=== PATIENT | female | born 1985 | race Caucasian/White ===

== ENCOUNTER 2021-10-04 07:26 | Inpatient (IN) | payer BC, SELFPAY ==
[2021-10-04] VITALS (195 sets, daily range): BP systolic 108–141; BP diastolic 65–103; PULSE 69–102; RESP 18; TEMP 36.6–37.3; O2SAT 95–100; BMI 24.6
[2021-10-04 08:19] LABS: Basophils Absolute Auto 0.1 K/mm3 (0.0-0.1); Basophils Percent Auto 0.4 % (0.2-1.2); Eosinophils Absolute Auto 0.1 K/mm3 (0-0.3); Eosinophils Percent Auto 0.7 % (0-4.4); Hematocrit 36.8 % (37.0-47.0); Hemoglobin 12.4 g/dL (12.0-15.0); Immature Granulocyte Absolute 0.44 K/mm3 (0.00-0.031); Immature Granulocyte Percent A 2.2 % (0-0.5); Lymphocytes Absolute Auto 2.03 K/mm3 (0.9-3.2); Lymphocytes Percent Auto 10.3 % (18.3-44.2); Mean Corpuscular HGB Conc 33.7 g/dl (32-36); Mean Corpuscular Hemoglobin 29.3 pg (26-34); Mean Platelet Volume 11.8 fl (7.4-10.4); Monocytes Absolute Auto 1.4 K/mm3 (0.1-0.6); Monocytes Percent Auto 7.1 % (2.6-8.5); Neutrophils Absolute Auto 15.7 K/mm3 (1.3-6.7); Neutrophils Percent Auto 79.3 % (45.5-73.1); Platelet Count Result 283 k/mm3 (150-375); Red Blood Count 4.23 M/mm3 (4.2-5.4); Red Cell Distribution Width 13.2 % (11.5-14.5); White Blood Count 19.8 K/mm3 (4.5-10.0)
[2021-10-04 08:25] LABS: Glucose 84 mg/dL (65-110)
[2021-10-04] MEDS: OXYTOCIN 30 UNITS/NS 500 ML 30 UNITS/500 ML BAG 6 UNITS IV CONT (08:30)
[2021-10-04] MEDS: LACTATED RINGERS 1,000 ML 125 ML IV CONT ×3 (08:30→19:42)
--- NOTE | 2021-10-04 08:44 | LDADM ---
This patient, Robi Laughlin, was admitted to Labor/Delivery/Recovery 107 on 10/04/21 at 07:26. Plans for labor, pain management and were discussed with patient. Patient/family oriented to hospital policies and general routines including ID bracelet, bed and alarms, visiting hours, pain management, procedures, bathroom and other care routines, personal items, smoking policy, room service/diet and guest tray routines, security routines, and visiting hours. Patient/Family are encouraged to report perceived risks to care and to ask questions if they do not understand what they are told or what they should do. See OBIX for further documentation.
[2021-10-04 09:02] LABS: Hemoglobin A1C 5.1 % (<5.7)
[2021-10-04] MEDS: fentaNYL CITRATE INJ (*CRX) 100 MCG/2 ML VIAL 50 MCG IV PUSH (12:07)
[2021-10-04] MEDS: fentaNYL CITRATE INJ (*CRX) 100 MCG/2 ML VIAL IV PUSH ×3 (13:07→15:08)
[2021-10-04 13:14] LABS: Rapid Plasma Reagin Non-Reactive (NonReactive)
--- NOTE | 2021-10-04 14:15 | WPDANESEPP ---
Anes - Eval Pre Procedure Procedure: Labor epidural Date/Time: 10/04/21 14:15 Surgeon: BARBER Preop Diagnosis: ABD PAIN WITH CONTRACTIONS Pre Op Diagnosis: Induction of Labor Patient Data Age: 35 Gender: F Height: 1.78 m Weight: 78 kg Last Vital Signs Temp 98.9 F 10/04/21 12:00 Pulse 83 10/04/21 13:01 Resp 18 10/04/21 08:26 BP 133/81 10/04/21 13:01 Pulse Ox 98 10/04/21 14:10 Allergies Allergy/AdvReac Type Severity Reaction Status Date / Time No Known Allergies Allergy Verified 10/04/21 08:14 Home Medications Medication Instructions Recorded Confirmed Type calcium carbonate [Tums] 200 mg PO .PRN PRN 10/04/21 10/04/21 History docusate sodium [Colace] 100 mg PO DAILY PRN 10/04/21 10/04/21 History famotidine [Pepcid] 20 mg PO DAILY 10/04/21 10/04/21 History ferrous sulfate 140 mg PO DAILY 10/04/21 10/04/21 History prenat.vits,lacey,[place]ul-ring-rfnju 1 tablet PO DAILY 10/04/21 10/04/21 History [ Vitamin] Laboratory Tests 10/04/21 10/04/21 10/04/21 08:05 08:05 08:05 WBC 19.8 K/mm3 H K/mm3 (4.5-10.0) RBC 4.23 M/mm3 M/mm3 (4.2-5.4) Hgb 12.4 g/dL g/dL (12.0-15.0) Hct 36.8 % L % (37.0-47.0) MCV 87.0 fl fl (80-100) MCH 29.3 pg pg (26-34) MCHC 33.7 g/dl g/dl (32-36) RDW 13.2 % % (11.5-14.5) Plt Count 283 k/mm3 k/mm3 (150-375) MPV 11.8 fl H fl (7.4-10.4) Immature Gran % (Auto) 2.2 % H % (0-0.5) Neut % (Auto) 79.3 % H % (45.5-73.1) Lymph % (Auto) 10.3 % L % (18.3-44.2) [place] % (Auto) 7.1 % % (2.6-8.5) Eos % (Auto) 0.7 % % (0-4.4) Baso % (Auto) 0.4 % % (0.2-1.2) Lymph # (Auto) 2.03 K/mm3 K/mm3 (0.9-3.2) [place] # (Auto) 1.4 K/mm3 H K/mm3 (0.1-0.6) Eos # (Auto) 0.1 K/mm3 K/mm3 (0-0.3) Baso # (Auto) 0.1 K/mm3 K/mm3 (0.0-0.1) Abs Immat Gran (auto) 0.44 K/mm3 H K/mm3 (0.00-0.031) Absolute Neuts (auto) 15.7 K/mm3 H K/mm3 (1.3-6.7) Absolute Nucleated RBC 0.0 K/mm3 K/mm3 (0.0-0.012) Nucleated RBC % 0.0 % % (0.0-0.2) Glucose Hemoglobin A1c RPR Non-reactive (NonReactive) Blood Type B Positive Antibody Screen Negative 10/04/21 10/04/21 08:05 08:05 WBC RBC Hgb Hct MCV MCH MCHC RDW Plt Count MPV Immature Gran % (Auto) Neut % (Auto) Lymph % (Auto) [place] % (Auto) Eos % (Auto) Baso % (Auto) Lymph # (Auto) [place] # (Auto) Eos # (Auto) Baso # (Auto) Abs Immat Gran (auto) Absolute Neuts (auto) Absolute Nucleated RBC Nucleated RBC % Glucose 84 mg/dL mg/dL (65-110) Hemoglobin A1c 5.1 % % (<5.7) RPR Blood Type Antibody Screen : gestational age HCG: positive Patient hx anesthesia problems: none Family hx anesthesia problems: none Results Review: All pre-operative results and documents have been reviewed as part of the pre-operative evaluation. [facility] Past Medical History Medical History (Updated 10/04/21 @ 14:18 by Guillermo Prasad CRNA) Anxiety Migraines Overweight (BMI 25.0-29.9) and not yet delivered Family History Family History Grandparent Lung cancer Mother Hypertension Legal Guardian No problems noted. Grandparent Hypertension Social History Social History Smoking status: Never smoker Substance use: never Spiritual care concerns: No Exam Day of Procedure 10/04/21 14:15
[2021-10-04] MEDS: LORATADINE 10 MG TABLET PO (19:41)
[2021-10-04] MEDS: CALCIUM CARBONATE (TUMS) 500 MG (200 MG ELEMENTAL) PO (19:41)
[2021-10-05] VITALS (135 sets, daily range): BP systolic 90–150; BP diastolic 59–90; PULSE 58–259; RESP 16–20; TEMP 36.6–38.1; O2SAT 96–100
[2021-10-05] MEDS: ONDANSETRON INJ 4 MG/2 ML VIAL IV PUSH (00:06)
[2021-10-05] MEDS: diphenhydrAMINE HCl INJ 50 MG/ML VIAL 25 MG IV PUSH (01:38)
[2021-10-05] MEDS: AMPICILLIN 2 GM/NS 100 ML 2 GM/100 ML BAG IVPB (02:29)
[2021-10-05] MEDS: CALCIUM CARBONATE (TUMS) 500 MG (200 MG ELEMENTAL) PO (02:29)
[2021-10-05] MEDS: LACTATED RINGERS 1,000 ML 125 ML IV CONT (03:48)
[2021-10-05] MEDS: SODIUM CHLORIDE 0.9% IV 300 ML 600 ML I-UTERINE (04:24)
--- NOTE | 2021-10-05 05:18 | WPDOBADMIT ---
Obstetrics - Admit Note Admission Note: 10/04/21 @ 0900 35y/o G1 @ 40 weeks gestation here for induction of labor for term and suspected macrosomia. Pt was offered primary c/s or induction. We have discussed increased risks with macrosomia in detail including risk of injury that ranges from mild to catastrophic. Pt verbalized understanding and would like to proceed with induction of labor. Normal gtt screen at 28 weeks. No indication to repeat up until now. Will check fasting glucose and hgb a1c as this could impact decision on labor vs . VSS Contractons irregular FHR category 1 Cervix /70/-2 AROM small amount of clear odorless fluid Epidural when desired Anticipate record reviewed. No pertinent additions to the history and/or any subsequent changes in the physical findings that are not consistent with the expected course of the were found./ // Additions to the history and/or subsequent changes in the physical findings follow. None.
--- NOTE | 2021-10-05 05:24 | PM.IMHP ---
H&P: HPI History of Present Illness Date/Time: 10/05/21 05:24 35 y/o G1 @ 40 weeks here for induction of labor for term and suspected macrosomia. Chief Complaint: Induction of labor Review of Systems Review of Systems: All systems reviewed & are unremarkable except as noted in HPI and below Constitutional: Constitutional: Reports as per HPI and Reports no additional constitutional complaints Eyes: Eyes: Reports as per HPI ENT: Reports system reviewed and no additional complaints, except as documented Cardiovascular: Cardiovascular: Reports as per HPI Respiratory: Respiratory: Reports as per HPI Gastrointestinal: Gastrointestinal: Reports as per HPI Genitourinary: Genitourinary: Reports no additional female genitourinary complaints Musculoskeletal: Musculoskeletal: Reports no additional musculoskeletal complaints Integumentary/Breasts: Skin/Breast: Reports system reviewed and no additional complaints, except as docu Neurologic: Reports system reviewed and no additional complaints, except as documented Psychiatric: Psychiatric: Reports no additional psychiatric complaints Endocrine: Endocrine: Reports no additional endocrine complaints Hematologic/Lymphatic: Hematologic/Lymphatic: Reports no additional hematologic/lymphatic complaints Allergic/Immunologic: Allergic/Immunologic: Reports no additional allergic/immunologic complaints [facility] Past Medical History Medical History (Updated 10/04/21 @ 14:18 by Guillermo Prasad CRNA) Anxiety Migraines Overweight (BMI 25.0-29.9) and not yet delivered Family History Family History Grandparent Lung cancer Mother Hypertension Legal Guardian No problems noted. Grandparent Hypertension Social History Social History Smoking status: Never smoker Substance use: never Spiritual care concerns: No Meds Home Medications and Allergies Home Medications Medication Instructions Recorded Confirmed Type calcium carbonate [Tums] 200 mg PO .PRN PRN 10/04/21 10/04/21 History docusate sodium [Colace] 100 mg PO DAILY PRN 10/04/21 10/04/21 History famotidine [Pepcid] 20 mg PO DAILY 10/04/21 10/04/21 History ferrous sulfate 140 mg PO DAILY 10/04/21 10/04/21 History prenat.vits,lacey,sft-lsqb-afymf 1 tablet PO DAILY 10/04/21 10/04/21 History [ Vitamin] Allergies Allergy/AdvReac Type Severity Reaction Status Date / Time No Known Allergies Allergy Verified 10/04/21 08:14 Vital Signs Vital Signs - 24 hr 10/04/21 08:23 10/04/21 08:26 10/04/21 08:31 Temperature 99.1 F Pulse Rate 83 83 87 Respiratory Rate 18 Blood Pressure 128/89 128/89 130/88 Pulse Oximetry 10/04/21 08:46 10/04/21 09:01 10/04/21 09:16 Temperature Pulse Rate 82 81 78 Respiratory Rate Blood Pressure 141/92 H 137/88 135/80 Pulse Oximetry 10/04/21 09:31 10/04/21 09:46 10/04/21 10:00 Temperature 98.3 F Pulse Rate 87 78 Respiratory Rate Blood Pressure 114/71 121/90 Pulse Oximetry 10/04/21 10:08 10/04/21 10:16 10/04/21 10:31 Temperature Pulse Rate 73 80 86 Respiratory Rate Blood Pressure 129/78 120/89 131/91 H Pulse Oximetry 10/04/21 10:46 10/04/21 11:01 10/04/21 11:16 Temperature Pulse Rate 80 72 82 Respiratory Rate Blood Pressure 123/86 122/76 125/82 Pulse Oximetry 10/04/21 11:31 10/04/21 11:46 10/04/21 12:00 Temperature 98.9 F Pulse Rate 78 78 Respiratory Rate Blood Pressure 123/89 110/71 Pulse Oximetry 10/04/21 12:15 10/04/21 12:31 10/04/21 12:46 Temperature Pulse Rate 84 82 77 Respiratory Rate Blood Pressure 134/83 123/76 124/77 Pulse Oximetry 10/04/21 13:01 10/04/21 13:10 10/04/21 13:15 Temperature Pulse Rate 83 Respiratory Rate Blood Pressure 133/81 Pulse Oximetry 100 98 10/04/21 13:20 10/04/21 13:25 10/04/21 1
--- NOTE | 2021-10-05 06:42 | WPDHPUPDATE1 ---
History and Physical Update Update Date/Time: 10/05/21 06:42 VSS with a temp of 100.5 Contractions regular and have been adequate most of the night FHR category 2. occasional variable and late decelerations. Overall reassuring. Cervix 4-5 with minimal change overnight Pt tearful and ready to proceed with . Dr Miner notified and called. Discussed risks of including bleeding, infection and damage to bowel or bladder. Pt verbalized understanding and agrees to proceed. for suspected macrosomia and failure to progress. History and Physical has been reviewed, including an updated exam of the patient. There are NO changes in the patient's condition. Risks, benefits, and alternatives have been discussed and questions answered. Patient agrees to proceed with procedure.
--- NOTE | 2021-10-05 06:48 | WPDANESEFPP ---
Anes - Eval Final PreProcedure Day of Procedure 10/05/21 06:48 Patient weight: normal Heart: regular rate and rhythm Lungs: clear to auscultation and normal air movement Airway: Mallampati scale class II Neurological: alert and oriented Last oral intake: >/= 8 hours ASA classification: II Emergent: no Anesthetic plan: proceed Anesthesia type and monitoring: regional epidural and standard monitoring Results Review: All pre-operative results and documents have been reviewed as part of the pre-operative evaluation. Informed Consent: The patient's anesthetic plan and its attendant risks and benefits were discussed with the patient/family/POA. Questions were solicited and answers provided to the satisfaction of the patient/family/POA.
[2021-10-05] MEDS: AMPICILLIN 1 GM/NS 50 ML 1 GM/50 ML BAG IVPB (06:49)
[2021-10-05] MEDS: KETOROLAC 30 MG/ML VIAL (*BKC) IV PUSH ×2 (08:05→15:05)
--- NOTE | 2021-10-05 08:12 | W.PM.PROC2 ---
Procedure Note - Detailed Date of Procedure 10/05/21 Pre-op Diagnosis Induction of Labor, failed to progress Post-op Diagnosis same ( malposition of the head) Procedure Performed Low-transverse section Surgeon Sushant Miner MD Anesthesia spinal Indications arrest of labor, failed to progress Findings Normal gestational maternal anatomy, average size , normal Apgars. malposition of the head in the COLTEN a position Description of Procedure The patient was taken the operating room. She was prepped and draped in dorsal supine position with a leftward tilt. This was done after spinal anesthetic was applied. A low-transverse skin incision was made and carried down till of the fascia with the knife. The fascial incision was made with the knife. The fascial incision was extended laterally with [place] scissors. The fascia was tented upward superiorly and inferiorly the rectus muscles were dissected off bluntly. The rectus muscles were the midline. The preperitoneal fat and peritoneum were dissected open bluntly at the superior aspect of the rectus muscles. The peritoneal incision was extended superior and inferior with good position of bladder. The uterine incision was made with a scalpel down to the level of the amniotic cavity. The amniotic cavity was entered bluntly. The infant was delivered. The cord was clamped and cut and the infant was handed off to waiting pediatric staff. Cord bloods were obtained. The placenta was removed manually. The uterus was exteriorized. The uterus was cleared of all clots, debris and membranes. The uterus was closed in 0 Vicryl running lock fashion. An imbricating over a was placed along the incision line as well. The uterus was returned to the abdomen. The gutters were cleared of all clots and debris. The fascia was closed with 0 Vicryl running fashion. The subcutaneous tissue was irrigated pinpoint bleeders were cauterized. The skin was closed with subcuticular absorbable mukesh. The skin incision line was covered with glue. The patient tolerated the procedure well. She has taken recovery room in stable condition. Sponge lap and needle counts were correct x2. Estimated Blood Loss 500 Pathology yes Complications No immediate complications Condition stable Disposition PACU
[2021-10-05] MEDS: OXYTOCIN 30 UNITS/NS 500 ML 30 UNITS/500 ML BAG 125 UNITS IV CONT (09:53)
[2021-10-05] MEDS: HYDROcodone/acetaminophen (*CRX) 5-325 MG TABLET 1 TAB PO ×3 (12:34→20:15)
--- NOTE | 2021-10-05 14:40 | OBPPTRN ---
1027Patient transferred to post room #291 via stretcher. Support person present. Oriented to unit, room, information board, rooming in, admission packet and security measures. Patient verbalizes understanding.
[2021-10-05] MEDS: SIMETHICONE 80 MG TAB.CHEW PO ×2 (15:17→20:15)
[2021-10-05] MEDS: DEXTROSE 5%/0.45% SOD CHL 1,000 ML 125 ML IV CONT (15:29)
[2021-10-05] MEDS: DOCUSATE SODIUM 100 MG CAPSULE PO (17:27)
[2021-10-05] MEDS: IBUPROFEN 600 MG TABLET PO (20:15)
[2021-10-06 04:40] VITALS: BP 101/74; PULSE 85; RESP 16; TEMP 36.6
[2021-10-06] MEDS: SIMETHICONE 80 MG TAB.CHEW PO ×5 (04:52→20:23)
[2021-10-06] MEDS: HYDROcodone/acetaminophen (*CRX) 5-325 MG TABLET 1 TAB PO ×5 (04:52→22:42)
[2021-10-06] MEDS: IBUPROFEN 600 MG TABLET PO ×3 (04:53→20:22)
[2021-10-06 04:55] LABS: Basophils Absolute Auto 0.1 K/mm3 (0.0-0.1); Basophils Percent Auto 0.4 % (0.2-1.2); Eosinophils Absolute Auto 0.1 K/mm3 (0-0.3); Eosinophils Percent Auto 0.3 % (0-4.4); Hematocrit 27.8 % (37.0-47.0); Hemoglobin 9.4 g/dL (12.0-15.0); Immature Granulocyte Absolute 0.66 K/mm3 (0.00-0.031); Immature Granulocyte Percent A 2.2 % (0-0.5); Lymphocytes Absolute Auto 1.75 K/mm3 (0.9-3.2); Lymphocytes Percent Auto 5.9 % (18.3-44.2); Mean Corpuscular HGB Conc 33.8 g/dl (32-36); Mean Corpuscular Hemoglobin 29.8 pg (26-34); Mean Corpuscular Volume 88.3 fl (80-100); Mean Platelet Volume 11.9 fl (7.4-10.4); Monocytes Absolute Auto 1.7 K/mm3 (0.1-0.6); Monocytes Percent Auto 5.9 % (2.6-8.5); Neutrophils Absolute Auto 25.3 K/mm3 (1.3-6.7); Neutrophils Percent Auto 85.3 % (45.5-73.1); Platelet Count Result 211 k/mm3 (150-375); Red Blood Count 3.15 M/mm3 (4.2-5.4); Red Cell Distribution Width 13.3 % (11.5-14.5); White Blood Count 29.7 K/mm3 (4.5-10.0)
[2021-10-06 07:00] VITALS: BP 97/63; PULSE 75; RESP 16; TEMP 36.3; O2SAT 100
[2021-10-06 07:26] LABS: Platelet Estimate Adequate (Adequate)
--- NOTE | 2021-10-06 08:11 | WPDANLDPN2 ---
Anes-Prog Note L&D Date/Time: 10/06/21 08:11 Comfortable throughout: labor and delivery Neuraxial method: epidural Epidural/Spinal procedure site: clean & non-tender Neuro status: Neuro function grossly intact. Cardiovascular status: normal Respiratory status: normal Airway patency: baseline Mental status: baseline Post-Op hydration status: normal Vital Signs: Last Vital Signs Temp 97.3 F L 10/06/21 07:00 Pulse 75 10/06/21 07:00 Resp 16 10/06/21 07:00 BP 97/63 L 10/06/21 07:00 Pulse Ox 100 10/06/21 07:00 Pain score (VAS): 0 I/O: Intake & Output 10/05/21 10/06/21 10/06/21 23:59 07:59 15:59 Intake Total 1207 1000 Output Total 1950 1000 Balance -743 0 Post-procedural complaints: none Patient feedback: Patient satisfied with anesthetic care.
--- NOTE | 2021-10-06 09:05 | WPDANLDPN2 ---
Anes-Prog Note L&D Date/Time: 10/06/21 09:05 Comfortable throughout: labor and section Neuraxial method: epidural Epidural/Spinal procedure site: clean & non-tender Neuro status: Neuro function grossly intact. Cardiovascular status: normal Respiratory status: normal Airway patency: baseline Mental status: baseline Post-Op hydration status: normal Vital Signs: Last Vital Signs Temp 97.3 F L 10/06/21 07:00 Pulse 75 10/06/21 07:00 Resp 16 10/06/21 07:00 BP 97/63 L 10/06/21 07:00 Pulse Ox 100 10/06/21 07:00 Pain score (VAS): 0 I/O: Intake & Output 10/05/21 10/06/21 10/06/21 23:59 07:59 15:59 Intake Total 1207 1000 Output Total 1950 1000 Balance -743 0 Post-procedural complaints: none Patient feedback: Patient satisfied with anesthetic care.
--- NOTE | 2021-10-06 09:06 | WPDANLDNPN2 ---
Anes-Prog Note L&D-Neuraxial Date/Time: 10/06/21 09:06 Neuraxial medications: epidural PF morphine Opiod-related complaints: none Patient feedback: Patient satisfied with post-operative pain management.
[2021-10-06] MEDS: DOCUSATE SODIUM 100 MG CAPSULE PO ×2 (09:40→16:52)
[2021-10-06] MEDS: POLYSACCHARIDE IRON COMPLEX 150 MG CAPSULE PO ×2 (09:40→16:52)
--- NOTE | 2021-10-06 09:53 | P.PNOB_ITS ---
OB - PN: Subj Subjective Date/time seen: 10/06/21 09:53 Patient comments: no complaints, pain well controlled, tolerating diet and flatus present [place] baby status: doing well OB - PN: Obj Data Labs CBC & Chem 7: 10/06/21 04:39 10/04/21 08:05 Labs: Laboratory Results - last 24 hr 10/06/21 04:39 WBC 29.7 H RBC 3.15 L Hgb 9.4 L D Hct 27.8 L MCV 88.3 MCH 29.8 MCHC 33.8 RDW 13.3 Plt Count 211 MPV 11.9 H Immature Gran % (Auto) 2.2 H Neut % (Auto) 85.3 H Lymph % (Auto) 5.9 L [place] % (Auto) 5.9 Eos % (Auto) 0.3 Baso % (Auto) 0.4 Lymph # (Auto) 1.75 [place] # (Auto) 1.7 H Eos # (Auto) 0.1 Baso # (Auto) 0.1 Abs Immat Gran (auto) 0.66 H Absolute Neuts (auto) 25.3 H Absolute Nucleated RBC 0.0 Nucleated RBC % 0.0 Platelet Estimate Adequate OB - PN A/P Plan day: 1 Plan: routine care Comments: Elevated wbc. Did have covid booster in the last few weeks. No s/s of infection. Pt up and doing great. Lungs clear. Will repeat cbc in am and send urine culture. Time Spent With Patient Time: Total time spent is greater than 50% in coordination of care (as documented) at patient's floor/unit and/or counseling patient: Time with patient: less than 15 minutes Review of Systems Review of Systems: All systems reviewed & are unremarkable except as noted in HPI and below Exam Narrative: Fundus firm. Vaginal flow controlled. Incision dry and intact. Negative homans. No redness, warmth, or pain of lower ext. Const: General: comfortable Chest: Breast/axilla inspection: normal inspection of the breasts Resp: Effort & Inspection: normal respiratory effort Auscultation: clear to auscultation bilaterally Cardio: Rate: regular rate GI: GI Palp: Yes Soft to palpation Psych: Appearance: grossly normal Affect: normal affect Attitude: cooperative Thought content: Yes Normal thought content present Judgement: Good judgement present (Psych)
[2021-10-06 18:45] VITALS: BP 127/83; PULSE 88; RESP 18; TEMP 36.7
[2021-10-06] MEDS: HYDROcodone/acetaminophen (*CRX) 10-325 MG TABLET 1 TAB PO (20:05)
[2021-10-07] MEDS: HYDROcodone/acetaminophen (*CRX) 10-325 MG TABLET 1 TAB PO ×2 (01:37→23:59)
[2021-10-07] MEDS: SIMETHICONE 80 MG TAB.CHEW PO ×6 (01:37→23:59)
[2021-10-07] MEDS: IBUPROFEN 600 MG TABLET PO ×4 (01:38→20:38)
[2021-10-07] MEDS: HYDROcodone/acetaminophen (*CRX) 5-325 MG TABLET 1 TAB PO ×5 (04:55→20:37)
[2021-10-07] MEDS: POLYSACCHARIDE IRON COMPLEX 150 MG CAPSULE PO ×2 (07:39→16:35)
[2021-10-07] MEDS: DOCUSATE SODIUM 100 MG CAPSULE PO ×2 (07:39→16:34)
[2021-10-07] MEDS: MULTIVIT/MIN/PREN/FOL AC/IRON TABLET 1 TAB PO (07:39)
[2021-10-07 07:55] LABS: Hematocrit 29.7 % (37.0-47.0); Hemoglobin 9.9 g/dL (12.0-15.0); Mean Corpuscular HGB Conc 33.3 g/dl (32-36); Mean Corpuscular Hemoglobin 29.6 pg (26-34); Mean Corpuscular Volume 88.9 fl (80-100); Mean Platelet Volume 11.3 fl (7.4-10.4); Platelet Count Result 254 k/mm3 (150-375); Red Blood Count 3.34 M/mm3 (4.2-5.4); Red Cell Distribution Width 13.5 % (11.5-14.5)
--- NOTE | 2021-10-07 07:57 | P.PNOB_ITS ---
OB - PN: Subj Subjective Date/time seen: 10/07/21 07:57 Patient comments: no complaints, pain well controlled, tolerating diet and flatus present [place] baby status: doing well OB - PN: Obj Data Labs CBC & Chem 7: 10/06/21 04:39 10/04/21 08:05 OB - PN A/P Plan day: 2 Plan: routine care Comments: Awaiting cbc results. Time Spent With Patient Time: Total time spent is greater than 50% in coordination of care (as documented) at patient's floor/unit and/or counseling patient: Time with patient: less than 15 minutes Review of Systems Review of Systems: All systems reviewed & are unremarkable except as noted in HPI and below Exam Narrative: Fundus firm. Vaginal flow controlled. Incision dry and intact. Negative homans. No redness, warmth, or pain of lower ext. Const: General: comfortable Chest: Breast/axilla inspection: normal inspection of the breasts Resp: Effort & Inspection: normal respiratory effort Auscultation: clear to auscultation bilaterally Cardio: Rate: regular rate GI: GI Palp: Yes Soft to palpation Psych: Appearance: grossly normal Affect: normal affect Attitude: cooperative Thought content: Yes Normal thought content present Judgement: Good judgement present (Psych)
--- NOTE | 2021-10-07 08:00 | PC.NURSE ---
Consult with pt., mother reports she has attempting to breast for several feedings with difficulties latching and keeping awake at breast. Mother has decided to pump and bottle feed. Reviewed breast pump care and usage, pumping schedule, nipple care, and collection and storage of breast milk. Encouraged [id number], breast massage and manual expression to stimulate supply. Assessed patient for correct flange size, placement and draw. Patient verbalizes and demonstrates understanding of instructions. Mother is pumping without difficulties or discomfort. Mother has a pump for home use and is comfortable with use. Discussed colostrum vs milk supply and mother may not see more than a few drops the first few days, milk should transition in by day 3 and she may see more volume pumped per session. Discussed increasing supplementation as infant requires to satisfactions. Reviewed paced feeding and suggested to stop when infant is satisfied, as long as infant is having required output. With increased supplementation may not want to feed for 4 hours. Mother will continue to pump on infant feeding schedule and will increase session to 20 minutes if pumping every 4 hours. Mother is feeding as required and waking infant to feed if needed. is feeding without issue, and is currently meeting outcomes for weight, output, jaundice and feeding frequencies. Mother states she feels confident to continue current feeding plan at home. Reviewed transition to breast milk, signs of adequate intake, and engorgement/relief. Instructed to call ICP if intake/output less than required. Reviewed regular medications mother is taking. Information provided per Jael. Reviewed community resources on the [facility] website and in the Mom/Baby guide. Information on outpatient services provided. Mother has no further questions at this time. Instructed feeding should be initiated three hours from start of last feeding or if feeding cues are noted before until seen by ICP. Mother voiced understanding of information shared.
[2021-10-07 08:15] VITALS: BP 119/82; PULSE 71; RESP 18; TEMP 36.2; O2SAT 99
[2021-10-07 18:45] VITALS: BP 142/90; PULSE 90; RESP 18; TEMP 36.8
[2021-10-08] MEDS: HYDROcodone/acetaminophen (*CRX) 5-325 MG TABLET 1 TAB PO ×3 (04:10→16:39)
[2021-10-08] MEDS: IBUPROFEN 600 MG TABLET PO ×3 (04:10→16:40)
[2021-10-08 07:50] VITALS: BP 143/97; PULSE 75; RESP 18; TEMP 37.4; O2SAT 100
--- NOTE | 2021-10-08 07:59 | PM.OBPNVD ---
OB - PN: Subj Subjective Date/time seen: 10/08/21 07:59 Patient comments: no complaints, pain well controlled, tolerating diet and flatus present [place] baby status: doing well OB - PN: Obj Data Labs CBC & Chem 7: 10/07/21 07:46 10/04/21 08:05 Labs: Laboratory Results - last 24 hr 10/07/21 07:46 WBC 18.0 H RBC 3.34 L Hgb 9.9 L Hct 29.7 L MCV 88.9 MCH 29.6 MCHC 33.3 RDW 13.5 Plt Count 254 MPV 11.3 H OB - PN A/P Plan day: 3 Plan: routine care Comments: WBC improved. Remains afebrile. BP elevated last night and this morning. No history of hypertension. Will check labs. May consider staying until day 4 for late onset hypertension. Will await labs and repeat blood pressures later today. Time Spent With Patient Time: Total time spent is greater than 50% in coordination of care (as documented) at patient's floor/unit and/or counseling patient: Time with patient: less than 15 minutes Review of Systems Review of Systems: All systems reviewed & are unremarkable except as noted in HPI and below Exam Narrative: Fundus firm. Vaginal flow controlled. Incision dry and intact. Negative homans. No redness, warmth, or pain of lower ext. Const: General: comfortable Chest: Breast/axilla inspection: normal inspection of the breasts Resp: Effort & Inspection: normal respiratory effort Auscultation: clear to auscultation bilaterally Cardio: Rate: regular rate GI: GI Palp: Yes Soft to palpation Psych: Appearance: grossly normal Affect: normal affect Attitude: cooperative Thought content: Yes Normal thought content present Judgement: Good judgement present (Psych)
--- NOTE | 2021-10-08 08:30 | PC.NURSE ---
Consult with pt., mother reports she had decided to pump and bottle feed formula/expressed milk. Reviewed breast pump care and usage, pumping schedule, nipple care, and collection and storage of breast milk. Encouraged [id number], breast massage and manual expression to stimulate supply. Assessed patient for correct flange size, placement and draw. Patient verbalizes and demonstrates understanding of instructions. Mother continues with nipple discomfort from previous attempts. Stressed to keep pump draw to slight draw only, increasing once nipples are healed. Nipple care reviewed of lanolin after feedings, warm compresses as needed, gel pads provided and reviewed care and cleaning. Mother is pumping without difficulties or discomfort. Mother has a pump for home use and is comfortable with use. Discussed colostrum vs milk supply and mother may not see more than a few drops the first few days, milk should transition in by day 3 and she may see more volume pumped per session. Discussed increasing supplementation as requires to satisfactions. Reviewed paced feeding and suggested to stop when is satisfied, as long as is having required output. With increased supplementation may not want to feed for 4 hours. Mother will continue to pump on feeding schedule and will increase session to 20 minutes if pumping every 4 hours. Mother is feeding as required and waking infant to feed if needed. Infant is feeding without issue, and is currently meeting outcomes for weight, output, jaundice and feeding frequencies. Mother states she feels confident to continue current feeding plan at home. Reviewed transition to breast milk, signs of adequate intake, and engorgement/relief. Instructed to call ICP if intake/output less than required. Reviewed regular medications mother is taking. Information provided per Jael. Reviewed community resources on the [facility] website and in the Mom/Baby guide. Information on outpatient services provided. Mother has no further questions at this time.
[2021-10-08 09:00] VITALS: BP 138/87; PULSE 72
[2021-10-08] MEDS: SIMETHICONE 80 MG TAB.CHEW PO (09:03)
[2021-10-08] MEDS: MULTIVIT/MIN/PREN/FOL AC/IRON TABLET 1 TAB PO (09:03)
[2021-10-08] MEDS: POLYSACCHARIDE IRON COMPLEX 150 MG CAPSULE PO (09:03)
[2021-10-08] MEDS: DOCUSATE SODIUM 100 MG CAPSULE PO (09:04)
[2021-10-08 09:32] LABS: Hematocrit 30.1 % (37.0-47.0); Hemoglobin 10.2 g/dL (12.0-15.0); Mean Corpuscular HGB Conc 33.9 g/dl (32-36); Mean Corpuscular Hemoglobin 29.6 pg (26-34); Mean Corpuscular Volume 87.2 fl (80-100); Mean Platelet Volume 10.8 fl (7.4-10.4); Platelet Count Result 339 k/mm3 (150-375); Red Blood Count 3.45 M/mm3 (4.2-5.4); Red Cell Distribution Width 13.1 % (11.5-14.5); White Blood Count 14.2 K/mm3 (4.5-10.0)
[2021-10-08 09:58] LABS: Alanine Aminotransferase 17 U/L (4-35); Albumin Level 3.1 g/dL (3.5-5.1); Alkaline Phosphatase 145 U/L (38-126); Anion Gap 1 mmol/L (8-16); Aspartate Amino Transferase 31 U/L (14-36); Bilirubin,Total 0.2 mg/dL (0.2-1.3); Blood Urea Nitrogen 4 mg/dL (7-17); Calcium 8.7 mg/dL (8.4-10.2); Carbon Dioxide 30 mmol/L (22-30); Chloride 100 mmol/L (98-107); Estimated CRCL calculation 121 ml/min; Estimated Glomerular Filt Rate > 60; Glucose 78 mg/dL (65-110); Potassium 4.1 mmol/L (3.4-5.0); Sodium 131 mmol/L (137-145); Uric Acid 4.2 mg/dL (2.5-7.5)
--- NOTE | 2021-10-08 12:11 | PC.NURSE ---
Patient viewed the discharge video Mother & Baby Care, The First Two Weeks online. Patient was given the opportunity and encouraged to ask questions. Patient verbalized understanding of information shared and has been given the mother/baby guide for home reference.
[2021-10-08 13:45] VITALS: BP 140/84; PULSE 79
[2021-10-09 10:26] VITALS: BP 131/84; PULSE 72; RESP 20; TEMP 36.9; O2SAT 100
--- NOTE | 2021-10-24 07:46 | PM.OBDSVD ---
DS: Admitting Diagnosis Discharge Date 10/08/21 Admitting Diagnosis Induction of labor OB - DS: Summary OB Procedures : None OB Procedures Intrapartum: OB Procedures: : None Peripartum Data Procedures: Procedures Operation Date: 10/05/21 07:15 Actual Procedure Side Surgeon p Section Not Applicable Sushant Miner MD Time Spent with Patient Time attestation: Total time spent providing and/or coordinating discharge services: Discharge Plan Discharge Attending physician on discharge: Sushant Miner Consulting providers: Frances Rodriguez ; Dexter Moreau Discharging Clinician: Frances Rodriguez Patient Disposition: Home, Self-Care Activity: may drive after 2 weeks and pelvic rest Diet: as tolerated Wound Care Instructions: follow printed instructions Discharge Instructions: Education: Mom and Baby Guide Given to: Mother Follow-Up: Call your delivering provider's office for an appointment to be seen in: 2 Weeks Mom and baby should come to the [facility] for the follow-up appointment. Appointment Date/Time: October 09, 2021 at 11:00 am What to expect at your follow-up visit: Blood Pressure Check Physical Assessment Call [phone] if you are unable to keep your appointment time. BREAST CARE: * Wear a snug supportive bra. * For engorgement discomfort: Breast Feeding: * Apply warm moist washcloths * Express milk as needed to relieve engorgement * Wear loose clothing Bottle Feeding: * May apply ice packs * For sore nipples: * Identify correct latch-on * Apply warm moist washcloths before and after nursing * Air dry nipples after nursing * May apply Lansinoh cream to nipples ABDOMINAL INCISION: (if applicable) * Allow incision to air dry * Do NOT use lotions for powders on your incision * When showering, allow soap and water to run over the incision, but do not wash incision EPISIOTOMY/PERINEAL CARE: * Until bleeding stops, use your dickson bottle after urinating * Change your pad frequently throughout the day * You may take sitz baths several times a day (fill your bathtub with warm water and soak for 20 minutes.) Do NOT bathe in the water * No tub baths until seen by your physician - You may shower ACTIVITY: * Rest as much as possible. * Do not exercise or lift anything heavier than your baby (such as laundry or other children.) * Avoid stairs or driving as much as possible. * Do not put anything into the vagina. No douching, tampons, or sexual activity until seen by physician. NOTIFY PHYSICIAN IF YOU HAVE ANY QUESTIONS OR IF ANY OF THE FOLLOWING SYMPTOMS OCCUR: * If your episiotomy or incision becomes red, swollen, or more painful than what you have experienced in the hospital. * If your vaginal bleeding becomes foul smelling. * If your vaginal bleeding becomes more heavy than a period or if your bleeding changes from pink to bright red. However, you may pass an occasional walnut-sized clot once or twice for the first week . * If you experience a sharp, shooting pain in you calves. * If you discover a hard, reddened area on your breast or if you experience flu-like symptoms. DIET: * Eat regular, well-balanced meals. * Drink plenty of fluids daily. If , drink to thirst. Patient Instructions: Antibiotic Form Stand Alone Forms: General Discharge Information Follow-up/Referrals: Sushant Miner MD [Physician] - Discharge Medications: New ibuprofen 600 mg Tablet 600 mg PO Q6H PRN (Reason: Cramping) Qty: 20 RF: 0 hydrocodone-acetaminophen 5-325 mg tablet 1 tablet PO Q6H PRN (Reason: pain) Qty: 20 RF: 0 Continued calcium carbonate [Tums] 200 mg calcium (500 mg) Tablet,Chewable 200 mg PO .PRN PRN (Reason: Acid Reflux) RF: 0 docusate sodium [Colace] 100 mg Capsule 100 mg PO DAILY [place]
== END 2021-10-08 16:48 | disposition home or self-care (01) | DRG 787 ==
LOC: ANHLDR 07:37 → ANHOB2 10-05 10:32
PROVIDERS: Advanced Practice Midwife; Admitting Provider Obstetrics & Gynecology; PCP Family Medicine; Visit Provider Obstetrics & Gynecology
PROC: 10D00Z1 Extraction of Products of Conception, Low, Open Approach (ICD-10-PCS; CPT 59514; principal; 2021-10-05 07:15)
DX: O36.63X0 Maternal care for excessive fetal growth, third trimester, not applicable or unspecified (principal); O75.2 Pyrexia during labor, not elsewhere classified; Z3A.40 40 weeks gestation of pregnancy; Z37.0 Single live birth; O32.4XX0 Maternal care for high head at term, not applicable or unspecified; O36.8330 Maternal care for abnormalities of the fetal heart rate or rhythm, third trimester, not applicable or unspecified
CPT/HCPCS: 36415; 80053; 82947; 83036; 84550; 85025; 85027; 86592; 86850; 86900; 86901; 87086; A9270; J0131; J0290; J1200; J1885; J2274; J2405; J2590; J2795; J3010; J7030; J7120